=== PATIENT | male | born 1945 | race Caucasian/White ===

== ENCOUNTER → 2017-12-11 13:25 | Outpatient (CLI) | payer MEDICARE, SELFPAY ==
[2017-12-11 13:53] VITALS: BP 147/95; PULSE 69; RESP 18; TEMP 36.9; O2SAT 97
[2017-12-11] MEDS: ZOLEDRONIC ACID 5 MG in SODIUM CHLORIDE 0.9% 100 ML 318.75 ML IV (13:53)
== END ==
PROVIDERS: Family Provider Internal Medicine; PCP Internal Medicine; Visit Provider Internal Medicine
DX: M81.0 Age-related osteoporosis without current pathological fracture (principal)
CPT/HCPCS: 96374; J3489

== ENCOUNTER → 2018-03-12 14:29 | Outpatient (CLI) | payer MEDICARE, SELFPAY ==
--- NOTE | 2018-03-12 | DI.RAD.S_ITS ---
PROCEDURE: XR HIP W PEL IF DONE LT MIN 4V INDICATIONS: LEFT HIP PAIN TECHNIQUE: AP pelvis with lateral view(s) of the left and right hip(s). COMPARISON: None. FINDINGS: Bones: No fractures or dislocations. Pelvic ring appears intact. No suspicious bony lesions. Mild joint narrowing with periarticular osteophyte formation. Degenerative disc and facet disease involves the inferior lumbar spine. Soft tissues: The visualized bowel gas pattern is normal. No suspicious soft tissue calcifications. Vascular calcifications indicate atherosclerosis. IMPRESSION: Mild symmetric hip joint degeneration. Dictated by: Nando MARINO Interpreted: Madonna Martinez MD on 03/12/2018 at 15:01 Approved by: Madonna Martinez M.D. on 03/12/2018 at 16:22
== END ==
PROVIDERS: Family Provider Internal Medicine; PCP Internal Medicine; Visit Provider Internal Medicine
DX: M25.552 Pain in left hip (principal); M16.0 Bilateral primary osteoarthritis of hip
CPT/HCPCS: 73522

== ENCOUNTER 2019-03-20 10:20 | Emergency (ER) | payer MEDICARE, SELFPAY ==
[2019-03-20 10:39] VITALS: BP 173/90; PULSE 79; RESP 16; TEMP 36.8; O2SAT 96
[2019-03-20 10:49] VITALS: BP 138/78; PULSE 79; RESP 16; TEMP 36.8; O2SAT 96
--- NOTE | 2019-03-20 11:37 | DI.US.S_ITS ---
PROCEDURE: US ABDOMEN LIMITED INDICATIONS: RLQ/INGUINAL PAIN, HX HERNIA TECHNIQUE: Real-time focused scanning was performed of the abdomen, with image documentation. COMPARISON: None. FINDINGS: Targeted sonographic imaging of the right inguinal region was performed to evaluate the patient's area of pain. There is no definite hernia within the right inguinal region. No fluid collections or soft tissue masses are evident. A small lymph node is evident at the site of the patient's pain, which measures up to 1.4 cm. IMPRESSION: 1. No evidence of right inguinal hernia. 2. Small lymph node within the right inguinal region correlates with the site of the patient's area of pain. Dictated by: Gutierrez Cole M.D. on 03/20/2019 at 12:36 Approved by: Gutierrez Cole M.D. on 03/20/2019 at 12:37
[2019-03-20 12:00] VITALS: BP 161/91; PULSE 72; O2SAT 97
[2019-03-20 12:16] LABS: Add Manual Diff / Slide Review NO; Basophils Absolute Auto 0 /uL (0-100); Basophils Percent Auto 0.4 % (0-2); Eosinophils Absolute Auto 200 /uL (0-450); Eosinophils Percent Auto 3.1 % (2-4); Hemoglobin 13.8 g/dL (13.5-17.5); Lymphocytes Absolute Auto 600 /uL (1100-4500); Mean Corpuscular HGB Conc 34.6 % (30-36); Mean Corpuscular Hemoglobin 32.6 PG (26-34); Mean Corpuscular Volume 94.1 fL (80-100); Monocytes Absolute Auto 800 /uL (0-900); Monocytes Percent Auto 14.4 % (3-14); Neutrophils Absolute Auto 4200 /uL (1500-7000); Neutrophils Percent Auto 72.1 % (50-75); Platelet Count 243 X10^3/uL (150-400); Red Blood Cell Count 4.25 X10^6/uL (4.5-5.9); Red Cell Distribution Width 13.3 % (11.6-14.8); White Blood Cell Count 5.8 X10^3/uL (4.5-11.0)
[2019-03-20 12:28] LABS: Alanine Aminotransferase 26 IU/L (21-72); Albumin 4.2 g/dL (3.5-5.0); Albumin Globulin Ratio 1.4 (1.0-2.8); Alkaline Phosphatase 77 U/L (38-126); Aspartate Aminotransferase 33 IU/L (17-59); BUN Creatinine Ratio 11.4 (6-22); Bilirubin Total 0.8 mg/dL (0.2-1.3); Blood Urea Nitrogen 8 mg/dL (9-20); Calcium 9.4 mg/dL (8.4-10.2); Carbon Dioxide 29 mmol/L (22-32); Chloride 91 mmol/L (98-107); Estimated Glomerular Filt Rate > 60.0 mL/min (>60); Globulin 2.9 g/dL (1.7-4.1); Glucose 97 mg/dL (80-110); HEMOLYSIS < 15 (0-50); Potassium 4.6 mmol/L (3.4-5.1); Sodium 131 mmol/L (137-145); Total Protein 7.1 g/dL (6.3-8.2)
[2019-03-20 12:30] VITALS: BP 153/96; PULSE 71; O2SAT 97
--- NOTE | 2019-03-20 13:21 | ED.ABDPAIN ---
HPI - Abdominal Pain <OSWALDO Le - Last Filed: 03/20/19 14:34> General Chief Complaint: Abdominal Pain Stated Complaint: Thinks hernia in rt groin Time Seen by Provider: 03/20/19 11:14 Source: patient and family Mode of arrival: ambulatory Limitations: no limitations History of Present Illness HPI narrative: The patient is a 73-year-old male current smoker with history of hernia surgery who presents with a chief complaint of ?I think I have a hernia and complains of right inguinal pain. He states that it started last week but got worse today after he suddenly lifted up his right leg this morning. He denies any fevers nausea vomiting or diarrhea. He denies any chest pain or shortness of breath. He has not taken anything for pain. He is concerned that he has another hernia as he has had a repair at that site. He denies any groin pain on his left side. Denies any testicular pain dysuria urgency or frequency. The patient does note that he is constipated, has not had a bowel movement 2 days. He denies any abdominal pain at nausea vomiting or diarrhea. He states he has not taken anything to help have a bowel movement. Review of Systems <OSWALDO Le - Last Filed: 03/20/19 14:34> Review of Systems GENERAL: Denies chills, fatigue, malaise, fever, sweats. HEENT: Denies sinus pain, ear pain, sore throat, difficulty swallowing, dizziness. RESPIRATORY: Denies dyspnea, cough, wheezing, hemoptysis, sputum. CARDIOVASCULAR: Denies chest pain, palpitations, orthopnea, edema, GASTROINTESTINAL: Denies nausea, vomiting, abdominal pain, diarrhea, constipation, melena. : Denies dysuria, frequency, incontinence, hematuria, urinary retention. MUSCULOSKELETAL: denies weakness, joint pain, or bony pain SKIN: Denies rash, skin lesions, or other NEUROLOGIC: Denies weakness, headache, numbness, change in speech, confusion, seizures, incoordination. PSYCHIATRIC: No concerning psychosocial issues. 12 point review of systems is negative except for those stated above PFSH <OSWALDO Le - Last Filed: 03/20/19 14:34> Medical History (Updated 03/20/19 @ 14:34 by OSWALDO Le) History of GI bleed (Acute) Surgical History (Updated 03/20/19 @ 14:34 by OSWALDO Le) H/O abdominal surgery (Acute) Social History (Updated 03/20/19 @ 14:34 by OSWALDO Le) marital status: Social History (Updated 03/20/19 @ 14:34 by OSWALDO Le) marital status: Exam <OSWALDO Le - Last Filed: 03/20/19 14:34> Narrative Exam Narrative: GENERAL: This is a well-nourished, well-developed patient, no acute distress HEAD: Atraumatic. Normocephalic. No temporal or scalp tenderness. EYES: Pupils equal round and reactive. Extraocular motions intact. No scleral icterus. No injection or drainage. ENT: Nose without bleeding, purulent drainage or septal hematoma. Throat without erythema, tonsillar hypertrophy or exudate. Uvula midline. Airway patent. NECK: Trachea midline. No JVD or lymphadenopathy. Supple, nontender, no meningeal signs. CARDIOVASCULAR: Regular rate and rhythm RESPIRATORY: Clear to auscultation. Breath sounds equal bilaterally. No wheezes, rales, or rhonchi. No cough. No increased respiratory effort. No accessory muscle use. GASTROINTESTINAL: Abdomen soft, non-tender, nondistended. No hepato-splenomegaly, or palpable masses. No guarding. Hyperactive bowel sounds noted. EXTREMITIES: No clubbing, cyanosis, or edema. No joint tenderness, effusion, or edema noted. Pedal pulses intact right lower leg. BACK: Nontender without deformity or crepitance. No flank tenderness. NEURO: AOx3. SKIN: No rash or erythema. Genital exam done with Wale AMEZCUA in room: No palpable hernia right inguinal area. Palpable lymph node noted with pain to palpation. Cremasteric reflexes intact bilaterally. No pain to testicular palpation. Initial Vital Signs Initial Vital Signs: Vital Signs Temperature 98.2 F 03/20/19 10:39 Pulse Rate 79 03/20/19 10:39 Respiratory Rate 16 03/20/19 10:39 Blood Pressure 173/90 H 03/20/19 10:39 Pulse Oximetry 96 03/20/19 10:39 <Mary Hi DO - Last Filed: 03/21/19 07:21> Initial Vital Signs Initial Vital Signs: Vital Signs Temperature 98.2 F 03/20/19 10:39 Pulse Rate 79 03/20/19 10:39 Respiratory Rate 16 03/20/19 10:39 Blood Pressure 173/90 H 03/20/19 10:39 Pulse Oximetry 96 03/20/19 10:39 Course <OSWALDO Le - Last Filed: 03/20/19 14:34> Orders Ordered: ED Orders 03/20/19 11:37 US abdomen limited Stat 03/20/19 12:05 Complete Blood Count AUTO DIFF Stat Comprehensive Metabolic Panel Stat Vital Signs - 8 hr 03/20/19 10:39 03/20/19 10:49 03/20/19 12:00 Temperature 98.2 F 98.2 F Pulse Rate 79 79 72 Respiratory Rate 16 16 Blood Pressure 138/78 Blood Pressure [Right Arm] 173/90 H 161/91 H Pulse Oximetry 96 96 97 03/20/19 12:30 03/20/19 13:30 03/20/19 14:24 Temperature Pulse Rate 71 72 76 Respiratory Rate 15 Blood Pressure 156/94 H Blood Pressure [Right Arm] 153/96 H 140/91 H Pulse Oximetry 97 97 97 <Mary Hi DO - Last Filed: 03/21/19 07:21> Orders Ordered: ED Orders 03/20/19 11:37 US abdomen limited Stat 03/20/19 12:05 Complete Blood Count AUTO DIFF Stat Comprehensive Metabolic Panel Stat Vital Signs - 8 hr 03/20/19 10:39 03/20/19 10:49 03/20/19 12:00 Temperature 98.2 F 98.2 F Pulse Rate 79 79 72 Respiratory Rate 16 16 Blood Pressure 138/78 Blood Pressure [Right Arm] 173/90 H 161/91 H Pulse Oximetry 96 96 97 03/20/19 12:30 03/20/19 13:30 03/20/19 14:24 Temperature Pulse Rate 71 72 76 Respiratory Rate 15 Blood Pressure 156/94 H Blood Pressure [Right Arm] 153/96 H 140/91 H Pulse Oximetry 97 97 97 MDM - Abdominal Pain <OSWALDO Le - Last Filed: 03/20/19 14:34> Lab Data Result diagrams: 03/20/19 12:05 03/20/19 12:05 Lab Results 03/20/19 03/20/19 Range/Units 12:05 12:05 WBC 5.8 (4.5-11.0) X10^3/uL RBC 4.25 L (4.5-5.9) X10^6/uL Hgb 13.8 (13.5-17.5) g/dL Hct 40.0 L (41-53) % MCV 94.1 (80-100) fL MCH 32.6 (26-34) PG MCHC 34.6 (30-36) % RDW 13.3 (11.6-14.8) % Plt Count 243 (150-400) X10^3/uL Neut % (Auto) 72.1 (50-75) % Lymph % (Auto) 10.0 L (25-40) % [place] % (Auto) 14.4 H (3-14) % Eos % (Auto) 3.1 (2-4) % Baso % (Auto) 0.4 (0-2) % Neut # (Auto) 4200 (5494-6092) /uL Lymph # (Auto) 600 L (5270-7025) /uL [place] # (Auto) 800 (0-900) /uL Eos # (Auto) 200 (0-450) /uL Baso # (Auto) 0 (0-100) /uL Sodium 131 L (137-145) mmol/L Potassium 4.6 (3.4-5.1) mmol/L Chloride 91 L (98-107) mmol/L Carbon Dioxide 29 (22-32) mmol/L BUN 8 L (9-20) mg/dL Creatinine 0.70 (0.66-1.25) mg/dL Estimated GFR > 60.0 (>60) mL/min BUN/Creatinine Ratio 11.4 (6-22) Glucose 97 (80-110) mg/dL Calcium 9.4 (8.4-10.2) mg/dL Total Bilirubin 0.8 (0.2-1.3) mg/dL AST 33 (17-59) IU/L ALT 26 (21-72) IU/L Alkaline Phosphatase 77 (38-126) U/L Total Protein 7.1 (6.3-8.2) g/dL Albumin 4.2 (3.5-5.0) g/dL Globulin 2.9 (1.7-4.1) g/dL Albumin/Globulin Ratio 1.4 (1.0-2.8) Point of care testing: Urine Dip Bedside Urine Glucose Negative Bedside Urine Bilirubin - Negative Bedside Urine Ketone - Negative Urine Specific Rhodes 1.015 Bedside Urine Occult Blood - Negative Bedside Urine pH 7.5 Bedside Urine Protein - Negative Bedside Urine Urobilinogen - Negative Bedside Urine Nitrite - Negative Bedside Urine Leukocytes - Negative Esterase Imaging Data US - abdomen: Radiologist's impression: Kwame Kebede M [address] [address] Ultrasound Report Signed Patient: Kwame Kebede EMR#: [id number] : [id number]:[id number] Age/Sex: 73 / MDate of Service: 03/20/19 Loc: ED Accession Number: [id number] Procedure: US abdomen limited Ordering Provider: Kya Phillips PROCEDURE: US ABDOMEN LIMITED INDICATIONS: RLQ/INGUINAL PAIN, HX HERNIA TECHNIQUE: Real-time focused scanning was performed of the abdomen, with image documentation. COMPARISON: None. FINDINGS: Targeted sonographic imaging of the right inguinal region was performed to evaluate the patient's area of pain. There is no definite hernia within the right inguinal region. No fluid collections or soft tissue masses are evident. A small lymph node is evident at the site of the patient's pain, which measures up to 1.4 cm. IMPRESSION: 1. No evidence of right inguinal hernia. 2. Small lymph node within the right inguinal region correlates with the site of the patient's area of pain. Dictated by: Gutierrez Cole M.D. on 03/20/2019 at 12:36 Approved by: Gutierrez Cole M.D. on 03/20/2019 at 12:37 [facility] Narrative Medical decision making narrative: The patient is a 73-year-old male who presents with a chief complaint of right groin pain. He states he thinks he has a hernia, which I do not appreciate on exam. He has a normal CBC CMP and UA. I did obtain an ultrasound, given the patient's pain on exam. His ultrasound does not show any hernia however he has pain to evaluation of a specific lymph node in his right inguinal region. I encouraged rest ice compression elevation as well as [id number] pain medications as needed and able. The patient declined any medications in the emergency department or any prescription medications upon discharge. He is neurovascularly intact, positive pedal pulses nontoxic appearing and hemodynamically stable throughout his stay in the emergency department. I discussed that his lymphadenopathy needs to be monitored her, discussed the fact that it may represent a serious etiology it and eventually require further evaluation or biopsy. I encouraged him to follow up with PCP in the next few days. The patient states he has not had a bowel movement the past 2 and days, has no leukocytosis and a nonacute abdominal exam. I did discuss methods to help alleviate constipation such as Colace, senna etc. Discussed coming back to the ER for any acute concerns such as chest pain, shortness of breath, confusion concern of heart attack or stroke. Patient and stated understanding and have no questions or concerns upon discharge. <Mary Hi, DO - Last Filed: 03/21/19 07:21> Lab Data Lab Results 03/20/19 03/20/19 Range/Units 12:05 12:05 WBC 5.8 (4.5-11.0) X10^3/uL RBC 4.25 L (4.5-5.9) X10^6/uL Hgb 13.8 (13.5-17.5) g/dL Hct 40.0 L (41-53) % MCV 94.1 (80-100) fL MCH 32.6 (26-34) PG MCHC 34.6 (30-36) % RDW 13.3 (11.6-14.8) % Plt Count 243 (150-400) X10^3/uL Neut % (Auto) 72.1 (50-75) % Lymph % (Auto) 10.0 L (25-40) % [place] % (Auto) 14.4 H (3-14) % Eos % (Auto) 3.1 (2-4) % Baso % (Auto) 0.4 (0-2) % Neut # (Auto) 4200 (7570-9354) /uL Lymph # (Auto) 600 L (1833-6149) /uL [place] # (Auto) 800 (0-900) /uL Eos # (Auto) 200 (0-450) /uL Baso # (Auto) 0 (0-100) /uL Sodium 131 L (137-145) mmol/L Potassium 4.6 (3.4-5.1) mmol/L Chloride 91 L (98-107) mmol/L Carbon Dioxide 29 (22-32) mmol/L BUN 8 L (9-20) mg/dL Creatinine 0.70 (0.66-1.25) mg/dL Estimated GFR > 60.0 (>60) mL/min BUN/Creatinine Ratio 11.4 (6-22) Glucose 97 (80-110) mg/dL Calcium 9.4 (8.4-10.2) mg/dL Total Bilirubin 0.8 (0.2-1.3) mg/dL AST 33 (17-59) IU/L ALT 26 (21-72) IU/L Alkaline Phosphatase 77 (38-126) U/L Total Protein 7.1 (6.3-8.2) g/dL Albumin 4.2 (3.5-5.0) g/dL Globulin 2.9 (1.7-4.1) g/dL Albumin/Globulin Ratio 1.4 (1.0-2.8) Point of care testing: Urine Dip Bedside Urine Glucose Negative Bedside Urine Bilirubin - Negative Bedside Urine Ketone - Negative Urine Specific [place] 1.015 Bedside Urine Occult Blood - Negative Bedside Urine pH 7.5 Bedside Urine Protein - Negative Bedside Urine Urobilinogen - Negative Bedside Urine Nitrite - Negative Bedside Urine Leukocytes - Negative Esterase Discharge Plan Departure Patient Disposition: Home Clinical Impression: Lymphadenopathy Constipation Qualifiers: Constipation type: unspecified constipation type Qualified Code(s): K59.00 - Constipation, unspecified Discharge Date/Time: 03/20/19 14:27 Interventions: ED Discharge Assessment Last Done: 03/20/19 14:24 Instructions: Constipation (Alternative Therapy), DI for Constipation, DI for Lymphadenopathy Activity Restrictions/Additional Instructions: Today your ultrasound did not show any hernia. It showed a lymph node that was painful, which correlated with my exam. The lymph node needs to be monitored and further workup may be needed. Your lab work came back with no signs of infection or elevated white blood cell count. I suggest rest, ice, [id number] pain medications as needed and able. I have included discharge instructions regarding constipation, Colace, senna, MiraLax can be options to help induce a bowel movement as can staying hydrated Please come back to the emergency department for any acute concerns such as chest pain, shortness of breath etc Referrals: Aldo Flor MD [Primary Care Provider] - <Mary Hi DO - Last Filed: 03/21/19 07:21> Cosign ED Attending Misael Attestation: I was immediately available in the department for consultation. Documentation has been reviewed. I agree with assessment and plan.
--- NOTE | 2019-03-20 13:24 | ED_ITS ---
HPI - Abdominal Pain <OSWALDO Le - Last Filed: 03/20/19 14:34> General Chief Complaint: Abdominal Pain Stated Complaint: Thinks hernia in rt groin Time Seen by Provider: 03/20/19 11:14 Source: patient and family Mode of arrival: ambulatory Limitations: no limitations History of Present Illness HPI narrative: The patient is a 73-year-old male current smoker with history of hernia surgery who presents with a chief complaint of ?I think I have a hernia and complains of right inguinal pain. He states that it started last week but got worse today after he suddenly lifted up his right leg this morning. He denies any fevers nausea vomiting or diarrhea. He denies any chest pain or shortness of breath. He has not taken anything for pain. He is concerned that he has another hernia as he has had a repair at that site. He denies any groin pain on his left side. Denies any testicular pain dysuria urgency or frequency. The patient does note that he is constipated, has not had a bowel movement 2 days. He denies any abdominal pain at nausea vomiting or diarrhea. He states he has not taken anything to help have a bowel movement. Review of Systems <OSWALDO Le - Last Filed: 03/20/19 14:34> Review of Systems GENERAL: Denies chills, fatigue, malaise, fever, sweats. HEENT: Denies sinus pain, ear pain, sore throat, difficulty swallowing, dizziness. RESPIRATORY: Denies dyspnea, cough, wheezing, hemoptysis, sputum. CARDIOVASCULAR: Denies chest pain, palpitations, orthopnea, edema, GASTROINTESTINAL: Denies nausea, vomiting, abdominal pain, diarrhea, constip ation, melena. : Denies dysuria, frequency, incontinence, hematuria, urinary retention. MUSCULOSKELETAL: denies weakness, joint pain, or bony pain SKIN: Denies rash, skin lesions, or other NEUROLOGIC: Denies weakness, headache, numbness, change in speech, confusion, seizures, incoordination. PSYCHIATRIC: No concerning psychosocial issues. 12 point review of systems is negative except for those stated above PFSH <OSWALDO Le - Last Filed: 03/20/19 14:34> Medical History (Updated 03/20/19 @ 14:34 by OSWALDO Le) History of GI bleed (Acute) Surgical History (Updated 03/20/19 @ 14:34 by OSWALDO Le) H/O abdominal surgery (Acute) Social History (Updated 03/20/19 @ 14:34 by OSWALDO Le) marital status: Social History (Updated 03/20/19 @ 14:34 by OSWALDO Le) marital status: Exam <OSWALDO Le - Last Filed: 03/20/19 14:34> Narrative Exam Narrative: GENERAL: This is a well-nourished, well-developed patient, no acute distress HEAD: Atraumatic. Normocephalic. No temporal or scalp tenderness. EYES: Pupils equal round and reactive. Extraocular motions intact. No scleral icterus. No injection or drainage. ENT: Nose without bleeding, purulent drainage or septal hematoma. Throat without erythema, tonsillar hypertrophy or exudate. Uvula midline. Airway patent. NECK: Trachea midline. No JVD or lymphadenopathy. Supple, nontender, no meningeal signs. CARDIOVASCULAR: Regular rate and rhythm RESPIRATORY: Clear to auscultation. Breath sounds equal bilaterally. No wheezes, rales, or rhonchi. No cough. No increased respiratory effort. No accessory muscle use. GASTROINTESTINAL: Abdomen soft, non-tender, nondistended. No hepato- splenomegaly, or palpable masses. No guarding. Hyperactive bowel sounds noted. EXTREMITIES: No clubbing, cyanosis, or edema. No joint tenderness, effusion, or edema noted. Pedal pulses intact right lower leg. BACK: Nontender without deformity or crepitance. No flank tenderness. NEURO: AOx3. SKIN: No rash or erythema. Genital exam done with Wale AMEZCUA in room: No palpable hernia right inguinal area. Palpable lymph node noted with pain to palpation. Cremasteric reflexes intact bilaterally. No pain to testicular palpation. Initial Vital Signs Initial Vital Signs: Vital Signs Temperature 98.2 F 03/20/19 10:39 Pulse Rate 79 03/20/19 10:39 Respiratory Rate 16 03/20/19 10:39 Blood Pressure 173/90 H 03/20/19 10:39 Pulse Oximetry 96 03/20/19 10:39 <Mary Hi DO - Last Filed: 03/21/19 07:21> Initial Vital Signs Initial Vital Signs: Vital Signs Temperature 98.2 F 03/20/19 10:39 Pulse Rate 79 03/20/19 10:39 Respiratory Rate 16 03/20/19 10:39 Blood Pressure 173/90 H 03/20/19 10:39 Pulse Oximetry 96 03/20/19 10:39 Course <OSWALDO Le - Last Filed: 03/20/19 14:34> Orders Ordered: ED Orders 03/20/19 11:37 US abdomen limited Stat 03/20/19 12:05 Complete Blood Count AUTO DIFF Stat Comprehensive Metabolic Panel Stat Vital Signs - 8 hr 03/20/19 10:39 03/20/19 10:49 03/20/19 12:00 Temperature 98.2 F 98.2 F Pulse Rate 79 79 72 Respiratory Rate 16 16 Blood Pressure 138/78 Blood Pressure [Right Arm] 173/90 H 161/91 H Pulse Oximetry 96 96 97 03/20/19 12:30 03/20/19 13:30 03/20/19 14:24 Temperature Pulse Rate 71 72 76 Respiratory Rate 15 Blood Pressure 156/94 H Blood Pressure [Right Arm] 153/96 H 140/91 H Pulse Oximetry 97 97 97 <Mary Hi DO - Last Filed: 03/21/19 07:21> Orders Ordered: ED Orders 03/20/19 11:37 US abdomen limited Stat 03/20/19 12:05 Complete Blood Count AUTO DIFF Stat Comprehensive Metabolic Panel Stat Vital Signs - 8 hr 03/20/19 10:39 03/20/19 10:49 03/20/19 12:00 Temperature 98.2 F 98.2 F Pulse Rate 79 79 72 Respiratory Rate 16 16 Blood Pressure 138/78 Blood Pressure [Right Arm] 173/90 H 161/91 H Pulse Oximetry 96 96 97 03/20/19 12:30 03/20/19 13:30 03/20/19 14:24 Temperature Pulse Rate 71 72 76 Respiratory Rate 15 Blood Pressure 156/94 H Blood Pressure [Right Arm] 153/96 H 140/91 H Pulse Oximetry 97 97 97 MDM - Abdominal Pain <OSWALDO Le - Last Filed: 03/20/19 14:34> Lab Data Result diagrams: 03/20/19 12:05 03/20/19 12:05 Lab Results 03/20/19 03/20/19 Range/Units 12:05 12:05 WBC 5.8 (4.5-11.0) X10^3/uL RBC 4.25 L (4.5-5.9) X10^6/uL Hgb 13.8 (13.5-17.5) g/dL Hct 40.0 L (41-53) % MCV 94.1 (80-100) fL MCH 32.6 (26-34) PG MCHC 34.6 (30-36) % RDW 13.3 (11.6-14.8) % Plt Count 243 (150-400) X10^3/uL Neut % (Auto) 72.1 (50-75) % Lymph % (Auto) 10.0 L (25-40) % [place] % (Auto) 14.4 H (3-14) % Eos % (Auto) 3.1 (2-4) % Baso % (Auto) 0.4 (0-2) % Neut # (Auto) 4200 (6774-0429) /uL Lymph # (Auto) 600 L (2484-4158) /uL [place] # (Auto) 800 (0-900) /uL Eos # (Auto) 200 (0-450) /uL Baso # (Auto) 0 (0-100) /uL Sodium 131 L (137-145) mmol/L Potassium 4.6 (3.4-5.1) mmol/L Chloride 91 L (98-107) mmol/L Carbon Dioxide 29 (22-32) mmol/L BUN 8 L (9-20) mg/dL Creatinine 0.70 (0.66-1.25) mg/dL Estimated GFR > 60.0 (>60) mL/min BUN/Creatinine Ratio 11.4 (6-22) Glucose 97 (80-110) mg/dL Calcium 9.4 (8.4-10.2) mg/dL Total Bilirubin 0.8 (0.2-1.3) mg/dL AST 33 (17-59) IU/L ALT 26 (21-72) IU/L Alkaline Phosphatase 77 (38-126) U/L Total Protein 7.1 (6.3-8.2) g/dL Albumin 4.2 (3.5-5.0) g/dL Globulin 2.9 (1.7-4.1) g/dL Albumin/Globulin Ratio 1.4 (1.0-2.8) Point of care testing: Urine Dip Bedside Urine Glucose Negative Bedside Urine Bilirubin - Negative Bedside Urine Ketone - Negative Urine Specific [place] 1.015 Bedside Urine Occult Blood - Negative Bedside Urine pH 7.5 Bedside Urine Protein - Negative Bedside Urine Urobilinogen - Negative Bedside Urine Nitrite - Negative Bedside Urine Leukocytes - Negative Esterase Imaging Data US - abdomen: Radiologist's impression: Kwame Kebede [address] [address] Ultrasound Report Signed Patient: Kwame Kebede EMR#: [id number] : [id number]:[id number] Age/Sex: 73 / MDate of Service: 03/20/19 Loc: ED Accession Number: [id number] Procedure: US abdomen limited Ordering Provider: Kya Phillips PROCEDURE: US ABDOMEN LIMITED INDICATIONS: RLQ/INGUINAL PAIN, HX HERNIA TECHNIQUE: Real-time focused scanning was performed of the abdomen, with image documentation. COMPARISON: None. FINDINGS: Targeted sonographic imaging of the right inguinal region was performed to evaluate the patient's area of pain. There is no definite hernia within the right inguinal region. No fluid collections or soft tissue masses are evident. A small lymph node is evident at the site of the patient's pain, which measures up to 1.4 cm. IMPRESSION: 1. No evidence of right inguinal hernia. 2. Small lymph node within the right inguinal region correlates with the site of the patient's area of pain. Dictated by: Gutierrez Cole M.D. on 03/20/2019 at 12:36 Approved by: Gutierrez Cole M.D. on 03/20/2019 at 12:37 [facility] Narrative Medical decision making narrative: The patient is a 73-year-old male who presents with a chief complaint of right groin pain. He states he thinks he has a hernia, which I do not appreciate on exam. He has a normal CBC CMP and UA. I did obtain an ultrasound, given the patient's pain on exam. His ultrasound does not show any hernia however he has pain to evaluation of a specific lymph node in his right inguinal region. I encouraged rest ice compression elevation as well as [id number] pain medications as needed and able. The patient declined any medications in the emergency department or any prescription medications upon discharge. He is neurovascularly intact, positive pedal pulses nontoxic appearing and hemodynamically stable throughout his stay in the emergency department. I discussed that his lymphadenopathy needs to be monitored her, discussed the fact that it may represent a serious etiology it and eventually require further evaluation or biopsy. I encouraged him to follow up with PCP in the next few days. The patient states he has not had a bowel movement the past 2 and days, has no leukocytosis and a nonacute abdominal exam. I did discuss methods to help alleviate constipation such as Colace, senna etc. Discussed coming back to the ER for any acute concerns such as chest pain, shortness of breath, confusion concern of heart attack or stroke. Patient and stated understanding and have no questions or concerns upon discharge. <Mary Hi, DO - Last Filed: 03/21/19 07:21> Lab Data Lab Results 03/20/19 03/20/19 Range/Units 12:05 12:05 WBC 5.8 (4.5-11.0) X10^3/uL RBC 4.25 L (4.5-5.9) X10^6/uL Hgb 13.8 (13.5-17.5) g/dL Hct 40.0 L (41-53) % MCV 94.1 (80-100) fL MCH 32.6 (26-34) PG MCHC 34.6 (30-36) % RDW 13.3 (11.6-14.8) % Plt Count 243 (150-400) X10^3/uL Neut % (Auto) 72.1 (50-75) % Lymph % (Auto) 10.0 L (25-40) % [place] % (Auto) 14.4 H (3-14) % Eos % (Auto) 3.1 (2-4) % Baso % (Auto) 0.4 (0-2) % Neut # (Auto) 4200 (4430-7553) /uL Lymph # (Auto) 600 L (5593-2880) /uL [place] # (Auto) 800 (0-900) /uL Eos # (Auto) 200 (0-450) /uL Baso # (Auto) 0 (0-100) /uL Sodium 131 L (137-145) mmol/L Potassium 4.6 (3.4-5.1) mmol/L Chloride 91 L (98-107) mmol/L Carbon Dioxide 29 (22-32) mmol/L BUN 8 L (9-20) mg/dL Creatinine 0.70 (0.66-1.25) mg/dL Estimated GFR > 60.0 (>60) mL/min BUN/Creatinine Ratio 11.4 (6-22) Glucose 97 (80-110) mg/dL Calcium 9.4 (8.4-10.2) mg/dL Total Bilirubin 0.8 (0.2-1.3) mg/dL AST 33 (17-59) IU/L ALT 26 (21-72) IU/L Alkaline Phosphatase 77 (38-126) U/L Total Protein 7.1 (6.3-8.2) g/dL Albumin 4.2 (3.5-5.0) g/dL Globulin 2.9 (1.7-4.1) g/dL Albumin/Globulin Ratio 1.4 (1.0-2.8) Point of care testing: Urine Dip Bedside Urine Glucose Negative Bedside Urine Bilirubin - Negative Bedside Urine Ketone - Negative Urine Specific [place] 1.015 Bedside Urine Occult Blood - Negative Bedside Urine pH 7.5 Bedside Urine Protein - Negative Bedside Urine Urobilinogen - Negative Bedside Urine Nitrite - Negative Bedside Urine Leukocytes - Negative Esterase Discharge Plan Departure Patient Disposition: Home Clinical Impression: Lymphadenopathy Constipation Qualifiers: Constipation type: unspecified constipation type Qualified Code(s): K59.00 - C onstipation, unspecified Discharge Date/Time: 03/20/19 14:27 Interventions: ED Discharge Assessment Last Done: 03/20/19 14:24 Instructions: Constipation (Alternative Therapy), DI for Constipation, DI for Lymphadenopathy Activity Restrictions/Additional Instructions: Today your ultrasound did not show any hernia. It showed a lymph node that was painful, which correlated with my exam. The lymph node needs to be monitored and further workup may be needed. Your lab work came back with no signs of infection or elevated white blood cell count. I suggest rest, ice, [id number] pain medications as needed and able. I have included discharge instructions regarding constipation, Colace, senna, MiraLax can be options to help induce a bowel movement as can staying hydrated Please come back to the emergency department for any acute concerns such as chest pain, shortness of breath etc Referrals: Aldo Flor MD [Primary Care Provider] - <Mary Hi DO - Last Filed: 03/21/19 07:21> Cosign ED Attending Misael Attestation: I was immediately available in the department for consultation. Documentation has been reviewed. I agree with assessment and plan.
[2019-03-20 13:30] VITALS: BP 140/91; PULSE 72; O2SAT 97
[2019-03-20 14:24] VITALS: BP 156/94; PULSE 76; RESP 15; O2SAT 97
== END 2019-03-20 14:27 | disposition home or self-care (01) ==
PROVIDERS: Emergency Provider Nurse Practitioner Family; PCP Internal Medicine
DX: R59.1 Generalized enlarged lymph nodes (principal); K59.00 Constipation, unspecified
CPT/HCPCS: 36415; 76705; 80053; 81003; 85025; 99283; 99284

== ENCOUNTER → 2019-04-14 11:56 | Oncology outpatient (ONC) | payer MEDICARE, SELFPAY ==
[2019-04-14 12:24] VITALS: BP 139/76; PULSE 69; RESP 16; TEMP 36.4; O2SAT 96
[2019-04-14] MEDS: ZOLEDRONIC ACID 5 MG in SODIUM CHLORIDE 0.9% 100 ML 318.75 ML IV (12:24)
== END ==
LOC: ONC 11:58
PROVIDERS: PCP Internal Medicine; Visit Provider Internal Medicine
DX: M81.0 Age-related osteoporosis without current pathological fracture (principal)
CPT/HCPCS: 36415; 96365; J3489

== ENCOUNTER 2019-07-08 21:29 | Emergency (ER) | payer MEDICARE, SELFPAY ==
--- NOTE | 2019-07-08 21:33 | DI.RAD.S_ITS ---
PROCEDURE: XR CHEST 1V INDICATIONS: Chest pain TECHNIQUE: One view of the chest was acquired. COMPARISON: None. FINDINGS: Surgical changes and devices: Surgical changes in the right shoulder.. Lungs and pleura: Lung volumes are low. There is irregular opacity in the left midlung with increased density. No other areas of airspace disease. No pleural effusions or pneumothorax. Mediastinum: Mediastinal contours appear normal. Heart size is normal. Bones and chest wall: No suspicious bony lesions. Overlying soft tissues appear unremarkable. IMPRESSION: 1. Left midlung opacity of uncertain etiology. Its morphology is suspicious for pleural plaque, although hypertrophic redundant, underlying a focal alveolar opacity/infection, or malignancy may be present. Correlate with any prior chest imaging and consider chest CT. Dictated by: Kerri Levin M.D. on 07/08/2019 at 22:22 Approved by: Kerri Levin M.D. on 07/08/2019 at 22:25
[2019-07-08 21:37] VITALS: BP 186/98; PULSE 67; RESP 18; TEMP 37.1; O2SAT 98; BMI 28.2
--- NOTE | 2019-07-08 21:56 | ED.CHESTPAIN ---
HPI - Chest Pain General Chief Complaint: Chest Pain Stated Complaint: recurrent chest pain, vomiting Time Seen by Provider: 07/08/19 21:32 Source: patient Mode of arrival: Ambulatory Limitations: no limitations History of Present Illness HPI narrative: Shooting 3-year-old male here for evaluation of epigastric pain. He states that it started earlier in the evening. He states that he gets a fairly sudden onset of pain in this area which leads him to vomit. He states that he has vomited multiple times since the onset of the symptoms. He states that after he vomits the symptoms seemed to improve. Has not had anything like this in the past. Has not tried anything for symptoms prior to arrival. No shortness of breath. Related Data Allergies Allergy/AdvReac Type Severity Reaction Status Date / Time No Known Drug Allergies Allergy Verified 07/08/19 21:37 Review of Systems Constitutional Constitutional: Denies fever(s) Cardiovascular Cardiovascular: Reports chest pain and Denies dyspnea Respiratory Respiratory: Denies cough and Denies dyspnea Gastrointestinal Gastrointestinal: Reports abdominal pain, Denies change in stool character and Reports vomiting Genitourinary Genitourinary: Denies dysuria Musculoskeletal Musculoskeletal: Denies myalgias and Denies arthralgias Integumentary/Breasts Skin/Breast: Denies lesions and Denies rash Neurologic Neurologic: Denies behavioral changes Psychiatric Psychiatric: Denies behavioral changes Hematologic/Lymphatic Hematologic/Lymphatic: Denies easy bleeding and Denies easy bruising Patient History Medical History History of GI bleed (Acute) Surgical History (Updated 03/20/19 @ 14:34 by UBALDO Le) H/O abdominal surgery (Acute) Social History marital status: tobacco type: smokeless tobacco alcohol intake frequency: other Substance Use Type: does not use Exam Initial Vital Signs Initial Vital Signs: Vital Signs Temperature 98.7 F 07/08/19 21:37 Pulse Rate 67 07/08/19 21:37 Respiratory Rate 18 07/08/19 21:37 Blood Pressure 186/98 H 07/08/19 21:37 Pulse Oximetry 98 07/08/19 21:37 Const General: cooperative and comfortable Orientation: alert and awake [facility] Head: normal to inspection and normocephalic Resp Effort & Inspection: normal respiratory effort Auscultation: clear to auscultation bilaterally Cardio Rate: regular rate Rhythm: regular rhythm GI Inspection: non-distended Palpation: soft, No firm and No tender Skin Lesions: no lesions Rashes: no rashes Neuro General: alert and awake Cognition: normal cognition Speech: speech normal Extrem General: normal to inspection and capillary refill normal Psych Appearance: grossly normal and well kempt Course Orders Ordered: ED Orders 07/08/19 21:33 XR chest 1V Stat EKG-12 Lead Stat 07/08/19 21:55 Complete Blood Count AUTO DIFF Stat Comprehensive Metabolic Panel Stat Partial Thromboplastin Time Stat Prothrombin Time INR Stat Troponin I Stat 07/09/19 00:05 Troponin I Stat Vital Signs Vital signs: Vital Signs - 8 hr 07/08/19 21:37 07/08/19 22:15 07/08/19 23:03 Temperature 98.7 F Pulse Rate 67 69 70 Respiratory Rate 18 14 16 Blood Pressure 186/98 H Blood Pressure [Right Arm] 144/87 H 119/81 Pulse Oximetry 98 96 98 07/09/19 00:56 Temperature Pulse Rate 74 Respiratory Rate Blood Pressure 127/78 Blood Pressure [Right Arm] Pulse Oximetry 98 MDM - Chest Pain Lab Data Attestation: I reviewed the patient's lab results. Result diagrams: 07/08/19 21:55 07/08/19 21:55 Labs: Lab Results 07/08/19 07/08/19 07/08/19 Range/Units 21:55 21:55 21:55 WBC 7.1 (4.5-11.0) X10^3/uL RBC 3.91 L (4.5-5.9) X10^6/uL Hgb 13.2 L (13.5-17.5) g/dL Hct 36.6 L (41-53) % MCV 93.4 (80-100) fL MCH 33.8 (26-34) PG MCHC 36.1 H (30-36) % RDW 12.7 (11.6-14.8) % Plt Count 241 (150-400) X10^3/uL Neut % (Auto) 78.3 H (50-75) % Lymph % (Auto) 8.6 L (25-40) % [place] % (Auto) 10.7 (3-14) % Eos % (Auto) 2.1 (2-4) % Baso % (Auto) 0.3 (0-2) % Neut # (Auto) 5600 (5169-5135) /uL Lymph # (Auto) 600 L (2446-1811) /uL [place] # (Auto) 800 (0-900) /uL Eos # (Auto) 100 (0-450) /uL Baso # (Auto) 0 (0-100) /uL PT 12.0 (10.1-12.7) SECONDS INR 1.0 (0.9-1.3) APTT 33 (26.4-36.2) SECONDS Sodium 129 L (137-145) mmol/L Potassium 4.0 (3.4-5.1) mmol/L Chloride 91 L (98-107) mmol/L Carbon Dioxide 30 (22-32) mmol/L BUN 9 (9-20) mg/dL Creatinine 0.90 (0.66-1.25) mg/dL Estimated GFR > 60.0 (>60) mL/min BUN/Creatinine Ratio 10.0 (6-22) Glucose 111 H (80-110) mg/dL Calcium 9.3 (8.4-10.2) mg/dL Total Bilirubin 0.7 (0.2-1.3) mg/dL AST 33 (17-59) IU/L ALT 22 (<50) IU/L Alkaline Phosphatase 60 (38-126) U/L Troponin I (0.01-0.034) ng/mL Total Protein 6.8 (6.3-8.2) g/dL Albumin 4.2 (3.5-5.0) g/dL Globulin 2.6 (1.7-4.1) g/dL Albumin/Globulin Ratio 1.6 (1.0-2.8) 07/08/19 07/09/19 Range/Units 21:55 00:05 WBC (4.5-11.0) X10^3/uL RBC (4.5-5.9) X10^6/uL Hgb (13.5-17.5) g/dL Hct (41-53) % MCV (80-100) fL MCH (26-34) PG MCHC (30-36) % RDW (11.6-14.8) % Plt Count (150-400) X10^3/uL Neut % (Auto) (50-75) % Lymph % (Auto) (25-40) % [place] % (Auto) (3-14) % Eos % (Auto) (2-4) % Baso % (Auto) (0-2) % Neut # (Auto) (5112-3771) /uL Lymph # (Auto) (1906-7611) /uL [place] # (Auto) (0-900) /uL Eos # (Auto) (0-450) /uL Baso # (Auto) (0-100) /uL PT (10.1-12.7) SECONDS INR (0.9-1.3) APTT (26.4-36.2) SECONDS Sodium (137-145) mmol/L Potassium (3.4-5.1) mmol/L Chloride (98-107) mmol/L Carbon Dioxide (22-32) mmol/L BUN (9-20) mg/dL Creatinine (0.66-1.25) mg/dL Estimated GFR (>60) mL/min BUN/Creatinine Ratio (6-22) Glucose (80-110) mg/dL Calcium (8.4-10.2) mg/dL Total Bilirubin (0.2-1.3) mg/dL AST (17-59) IU/L ALT (<50) IU/L Alkaline Phosphatase (38-126) U/L Troponin I < 0.012 < 0.012 (0.01-0.034) ng/mL Total Protein (6.3-8.2) g/dL Albumin (3.5-5.0) g/dL Globulin (1.7-4.1) g/dL Albumin/Globulin Ratio (1.0-2.8) Imaging Data Chest x-ray: Radiologist's impression: [address] [address] XRay Report Signed Patient: Kwame Kebede EMR#: [id number] : [id number]:[id number] Age/Sex: 73 / MDate of Service: 07/08/19 Loc: ED Accession Number: [id number] Procedure: XR chest 1V Ordering Provider: Grant Marcelo D.O. PROCEDURE: XR CHEST 1V INDICATIONS: Chest pain TECHNIQUE: One view of the chest was acquired. COMPARISON: None. FINDINGS: Surgical changes and devices: Surgical changes in the right shoulder.. Lungs and pleura: Lung volumes are low. There is irregular opacity in the left midlung with increased density. No other areas of airspace disease. No pleural effusions or pneumothorax. Mediastinum: Mediastinal contours appear normal. Heart size is normal. Bones and chest wall: No suspicious bony lesions. Overlying soft tissues appear unremarkable. IMPRESSION: 1. Left midlung opacity of uncertain etiology. Its morphology is suspicious for pleural plaque, although hypertrophic redundant, underlying a focal alveolar opacity/infection, or malignancy may be present. Correlate with any prior chest imaging and consider chest CT. Dictated by: Kerri Levin M.D. on 07/08/2019 at 22:22 Approved by: Kerri Levin M.D. on 07/08/2019 at 22:25 ECG Data Attestation: I personally reviewed and interpreted this ECG as follows: Prior ECG tracings: not available for review Interpretation: Sinus rhythm Ventricular rate is 65 Normal axis Normal QRS Normal QTC No ST T wave changes MDM Narrative Medical decision making narrative: Patient has not vomited since being here in the ER. Is the reported any recurrence of the symptoms. EKG is unremarkable. Troponins negative x2. Low suspicion for ACS. I do suspect that this is GI related. I did inform the patient he should contact his primary doctor for follow-up and discuss further evaluation to include a stress test. He's given return precautions and follow-up instructions. He expressed understanding and agreement with plan. Patient was discharged without informing him of the incidental findings noted his chest x-ray. I personally called the individual on 07/09/19 that approximately 1800 and informed him of the findings. I did inform him that he needed to call his primary doctor for follow-up. I did inform him that the findings could be suspicious for serious issues to include cancer. Patient expressed understanding and agreement plan. Discharge Plan Departure Patient Disposition: Home Clinical Impression: Atypical chest pain Abdominal pain Qualifiers: Abdominal location: epigastric Qualified Code(s): R10.13 - Epigastric pain Vomiting Qualifiers: Vomiting type: unspecified Vomiting Intractability: non-intractable Nausea presence: unspecified Qualified Code(s): R11.10 - Vomiting, unspecified Discharge Date/Time: 07/09/19 00:56 Instructions: DI for Abdominal Pain-Adult, DI for Atypical Chest Pain, DI for Vomiting -- Adult Activity Restrictions/Additional Instructions: Continue all of your medications as directed. I do recommend that tomorrow you contact your primary provider to discuss the indications for referral to have a stress test. Return to the emergency department for any new or worsening symptoms Referrals: Aldo Flor MD [Primary Care Provider] -
[2019-07-08 22:04] LABS: Add Manual Diff / Slide Review NO; Basophils Absolute Auto 0 /uL (0-100); Basophils Percent Auto 0.3 % (0-2); Eosinophils Absolute Auto 100 /uL (0-450); Eosinophils Percent Auto 2.1 % (2-4); Hematocrit 36.6 % (41-53); Hemoglobin 13.2 g/dL (13.5-17.5); Lymphocytes Absolute Auto 600 /uL (1100-4500); Lymphocytes Percent Auto 8.6 % (25-40); Mean Corpuscular HGB Conc 36.1 % (30-36); Mean Corpuscular Hemoglobin 33.8 PG (26-34); Mean Corpuscular Volume 93.4 fL (80-100); Monocytes Absolute Auto 800 /uL (0-900); Monocytes Percent Auto 10.7 % (3-14); Neutrophils Absolute Auto 5600 /uL (1500-7000); Neutrophils Percent Auto 78.3 % (50-75); Platelet Count 241 X10^3/uL (150-400); Red Blood Cell Count 3.91 X10^6/uL (4.5-5.9); Red Cell Distribution Width 12.7 % (11.6-14.8); White Blood Cell Count 7.1 X10^3/uL (4.5-11.0)
[2019-07-08 22:07] LABS: PTT Partial Thromboplastin Tim 33 SECONDS (26.4-36.2)
[2019-07-08 22:09] LABS: Alanine Aminotransferase 22 IU/L (<50); Albumin 4.2 g/dL (3.5-5.0); Albumin Globulin Ratio 1.6 (1.0-2.8); Alkaline Phosphatase 60 U/L (38-126); Aspartate Aminotransferase 33 IU/L (17-59); Bilirubin Total 0.7 mg/dL (0.2-1.3); Blood Urea Nitrogen 9 mg/dL (9-20); Calcium 9.3 mg/dL (8.4-10.2); Carbon Dioxide 30 mmol/L (22-32); Chloride 91 mmol/L (98-107); Estimated Glomerular Filt Rate > 60.0 mL/min (>60); Globulin 2.6 g/dL (1.7-4.1); Glucose 111 mg/dL (80-110); HEMOLYSIS < 15 (0-50); Sodium 129 mmol/L (137-145); Total Protein 6.8 g/dL (6.3-8.2)
[2019-07-08 22:15] VITALS: BP 144/87; PULSE 69; RESP 14; O2SAT 96
[2019-07-08 22:21] LABS: Troponin I < 0.012 ng/mL (0.01-0.034)
[2019-07-08 23:03] VITALS: BP 119/81; PULSE 70; RESP 16; O2SAT 98
[2019-07-09 00:46] LABS: Troponin I < 0.012 ng/mL (0.01-0.034)
[2019-07-09 00:56] VITALS: BP 127/78; PULSE 74; O2SAT 98
== END 2019-07-09 00:56 | disposition home or self-care (01) ==
PROVIDERS: Emergency Provider Emergency Medicine; Family Provider Internal Medicine; PCP Internal Medicine
DX: R07.89 Other chest pain (principal); R10.13 Epigastric pain; R11.10 Vomiting, unspecified
CPT/HCPCS: 36415; 71045; 80053; 84484; 85025; 85610; 85730; 93005; 93010; 99284; 99285

== ENCOUNTER → 2019-07-26 11:27 | Outpatient (CLI) | payer MEDICARE, SELFPAY ==
--- NOTE | 2019-07-26 11:31 | DI.CT.S_ITS ---
PROCEDURE: CT CHEST WO CON INDICATIONS: Abnormal findings on diagnostic imaging TECHNIQUE: Noncontrast 5 mm thick sections acquired from the pulmonary apices to the posterior costophrenic angles. 1 mm lung window, 5 mm thick coronal and sagittal and 7 mm axial MIP reformats were then acquired. For radiation dose reduction, the following was used: automated exposure control, adjustment of mA and/or kV according to patient size. COMPARISON: [facility], CR, XR CHEST 1V, 07/08/2019, 21:47. FINDINGS: Image quality: Excellent. Lungs and pleura: No acute air space opacities. Calcified granuloma within the left lower lobe laterally. 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 This corresponds to the finding seen by chest x-ray. No pleural effusions or pneumothorax. Central and peripheral airways are patent and normal in caliber. Mediastinum: Heart size is normal. Calcification of the coronary vasculature. No pericardial effusion. No mediastinal adenopathy by size criteria. Thoracic aorta and central pulmonary arteries are normal in size. Esophagus is normal in caliber. No hiatal hernia. Bones and chest wall: No suspicious bony lesions. No vertebral body compression fractures. No axillary or supraclavicular adenopathy by size criteria. Thyroid gland is within normal limits on noncontrast imaging. Abdomen: Visualized upper abdominal solid organs and bowel loops appear normal in the absence of contrast. IMPRESSION: 1. Asbestos related pleural disease. 2. No evidence of malignancy. 3. Remote granulomatous disease. 4. Coronary artery disease. Dictated by: Arnulfo Garcia M.D. on 07/26/2019 at 17:07 Approved by: Arnulfo Garcia M.D. on 07/26/2019 at 17:09
== END ==
PROVIDERS: Family Provider Internal Medicine; PCP Internal Medicine; Visit Provider Internal Medicine
DX: R93.89 Abnormal findings on diagnostic imaging of other specified body structures (principal); J92.0 Pleural plaque with presence of asbestos; I25.10 Atherosclerotic heart disease of native coronary artery without angina pectoris
CPT/HCPCS: 71250

== ENCOUNTER → 2020-10-09 12:28 | Outpatient (CLI) | payer MEDICARE, SELFPAY | PROVIDERS: Family Provider Internal Medicine; PCP Internal Medicine; Referring Provider Internal Medicine; Visit Provider Internal Medicine | DX: M81.8 Other osteoporosis without current pathological fracture (principal); M06.9 Rheumatoid arthritis, unspecified; Z82.62 Family history of osteoporosis; Z72.0 Tobacco use | CPT/HCPCS: 77080 ==

== ENCOUNTER → 2021-06-13 09:51 | Outpatient (CLI) | payer MEDICARE, SELFPAY ==
[2021-06-13 15:46] LABS: COVID19 -Nasal RAPID Negative (Negative)
== END ==
PROVIDERS: Family Provider Internal Medicine; PCP Internal Medicine; Referring Provider Internal Medicine; Visit Provider Internal Medicine
DX: Z20.822 Contact with and (suspected) exposure to COVID-19 (principal)
CPT/HCPCS: 87635; C9803

== ENCOUNTER → 2021-06-14 08:45 | Outpatient (CLI) | payer MEDICARE, SELFPAY ==
--- NOTE | 2021-06-20 08:56 | PM.PFT.1 ---
Pulmonary Function Test Referral & Results Date Patient Seen: 06/14/21 Requesting provider: Aldo Flor Results: The spirometry demonstrates an FVC of 3.07 L which is 80% of predicted. The FEV1 was measured at 2.22 L which is 80% of predicted. The FEV1/FVC ratio was 73 which is 99% of predicted. Following the administration of bronchodilator there was a 29% improvement in FEF 25-75% Lung volumes show an SVC of 3.08 L which is 75% of predicted. The diffusing capacity was measured at 20.32 which is 71% of predicted. The maximum voluntary ventilation was minimally reduced Interpretation: This study demonstrates perhaps very mild obstructive lung disease based on reduction FEV1 and minimal improvement after bronchodilator in small airway flow as above however FEV1/FVC ratio is preserved. There is also very mild reduction in lung volumes suggesting mild restrictive lung disease which may well account for the reduction FEV1 above There is also minimal reduction in diffusing capacity suggesting element of disease at the capillary alveolar level Clinical correlation suggested
== END ==
PROVIDERS: Family Provider Internal Medicine; PCP Internal Medicine; Referring Provider Student in an Organized Health Care Education/Training Program; Visit Provider Student in an Organized Health Care Education/Training Program
DX: R06.02 Shortness of breath (principal)
CPT/HCPCS: 94060; 94726; 94729